=== PATIENT | female | born 2000 | race Hispanic/Latino ===

== ENCOUNTER 2020-06-06 10:51 | Outpatient (CLI) | payer OTHER ==
[~2020-06-06] VITALS: Ht 154.9 cm; Wt 66.2 kg
[2020-06-06 11:10] VITALS: BP 112/69
[2020-06-06] MEDS ORDERED: PRENTAB9 PO (11:23)
[2020-06-06] MEDS ORDERED: VITA250T4 PO (11:23)
[2020-06-06] MEDS ORDERED: IRON325T2 PO (11:23)
--- NOTE | 2020-06-06 13:37 | IPNPDOC ---
Obstetrical Progress Note Date of Service Jun 06, 2020 Subjective 19 yo g1 @ 38+0 by 17wk us who presents to triage after being seen in clinic for NST and noted to be having regular contractions and not feeling any of them. she was checked at that time and was found to be 5CM Dilated. she was send up her to R/o labor. she denies feeling any contractions. when she initially presented to triage her contractions wereq2-3 min but after she voided and was hydrated they spaced out to q7-8min. she denies feeling any pain. she reports regular getal movements and denies any vaginal bleeding. she has no concerns at this time. FHT 135, Mod lucia,+Accels, -Decels---Cat I tracing TOCO: q7-8min noted, not painful SVE: 5/50/-3, Unchanged after 2 and half hours of observation BP: Normal vitals in triage A/P 19 yo g1 @ 38+0 by 17wk us who presents to triage after being seen in clinic for NST and noted to be having regular contractions and not feeling any of them. Patient has known polyhdramnios. her cervical exam remains unchanged after 2hrs and patient would like to go home and gather her things before she can come back for augmentation and she wants to go natural. she is G1 and is not feeling her contractions, it is resonable to let her go home ( walking ) for a few hours then return around 7 pm. patient is given strict return precautions. Objective Vital Signs Date Time Temp Pulse Resp B/P (MAP) Pulse Ox O2 Delivery O2 Flow Rate FiO2 06/06/20 11:10 97.5 90 18 112/69 (83) GIOVANY CURRAN MD Jun 06, 2020 13:37
[2020-06-09] MEDS ORDERED: DIBU10OI TOP (07:16)
== END 2020-06-06 13:15 | disposition home or self-care (01) ==
LOC: M LDO 10:51
PROVIDERS: ATTEND Obstetrics & Gynecology
DX: O47.1 False labor at or after 37 completed weeks of gestation (principal); Z3A.38 38 weeks gestation of pregnancy; O40.9XX0 Polyhydramnios, unspecified trimester, not applicable or unspecified; Z88.2 Allergy status to sulfonamides
CPT/HCPCS: 59025; G0378; G0463

== ENCOUNTER 2020-06-06 19:39 | Inpatient (IN) | payer OTHER ==
[2020-06-06] VITALS (7 sets, daily range): BP systolic 99–120; BP diastolic 54–76
[~2020-06-06] VITALS: Ht 154.9 cm; Wt 66.3 kg
[~2020-06-06 19:39] MED LIST: IRON325T2 PO; PRENTAB9 PO; VITA250T4 PO
[2020-06-06] MEDS ORDERED: METHYLERGONOVINE MALEATE 0.2 MG/ML VIAL (J2210) ONE (20:00)
[2020-06-06 20:42] LABS: HEMATOCRIT 33.9 % (36.0-47.0); HEMOGLOBIN 11.4 g/dl (12.0-15.5); MEAN CORPUSCULAR HEMOGLOBIN 31.3 pg (27.0-33.0); MEAN CORPUSCULAR HGB CONC 33.6 g/dl (32.0-36.5); MEAN CORPUSCULAR VOLUME 93.1 fl (80.0-96.0); PLATELET COUNT, AUTOMATED 262 10^3/uL (150-450); RED BLOOD COUNT 3.64 10^6/uL (4.00-5.40)
[2020-06-06] MEDS ORDERED: LIDOCAINE 1% MDV 20ML VIAL INFIL PRN (20:50)
[2020-06-06] MEDS ORDERED: OXYTOCIN DRIP 30 UNITS in IV 1 EA IV PRN (20:50)
[2020-06-06] MEDS ORDERED: OXYTOCIN DRIP 30 UNITS in IV 1 EA IV SCH (21:10)
--- NOTE | 2020-06-06 21:20 | HPEPDOC ---
Obstetrical History & Physical General Date of Admission Jun 06, 2020 at 19:39 History of Present Illness Ms. Stephen is a 19yo at 38+0 presenting for labor. She presented earlier today and was 5cm she is now 6cm. She notably has polyhydraminos. She denied VB, LOF, decreased FM. She reports her contractions are more painful than earlier today. She denied n/v/d, cp, sob, franco, visual changes, f/c, urinary sx. 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: History of STD (chlamydia 2018) Past Medical History Medical History hyperlipidemia, polyhydraminos, anemia of , varicella non-immune Surgical History: Hernia repair (inguinal unsure side 2008) Family History Significant Family History: No pertinent family hx Social History Marital Status: Family situation: Spouse/partner home Psychosocial History: No pertinent psych hx * Smoker: non-smoker Alcohol: Denies Drugs: denies Imunizations Tdap status: current Influenza Status: needs Allergies Coded Allergies: Sulfa (Sulfonamide Antibiotics) (Verified Allergy, Unknown, 06/06/20) Medications Scheduled Ascorbic Acid (Vitamin C) 250 Mg Tablet, 1 TAB PO DAILY Ferrous Sulfate (Iron) 325 Mg Tablet, 1 TAB PO DAILY No.137/Iron/Folic Acd ( Vitamin Tablet) 1 Each Tablet, 1 TAB PO DAILY Physical Examination Physical Examination GENERAL: Alert and oriented times three. BREAST: . ABDOMEN: Gravid and non-tender to touch. FETUS: Is vertex (VTX) by sterile vaginal examination (SVE), fetus is vertex (VTX) by US OP HEART RATE: Regular rate and rhythm. LUNGS: Clear to auscultation (CTA). EXTREMITIES: No edema. No clonus. Vital Signs/I&O Vital Signs Date Time Temp Pulse Resp B/P (MAP) Pulse Ox O2 Delivery O2 Flow Rate FiO2 06/06/20 19:58 99.0 115 16 107/70 (82) Laboratory Data 24H LABS Laboratory Tests 2 06/06/20 19:54: Serology Scanned Report Hepatitis B Testing 06/06/20 20:25: Nucleated Red Blood Cells % (auto) 0.0 CBC/BMP Laboratory Tests 06/06/20 20:25 Urine Culture: No Growth Pertinent Laboratoy Data Blood Type: O+ RBC Antibody Screen: Negative HIV: Negative Hepatitis B: Negative Rapid Plasma Reagin: Nonreactive Rubella: Immune Varicella: Nonreactive Chlamydia/Gonorrhea: Negative Group B Streptococcus: Negative Quad Screen Test: Declined Cystic Fibrosis: Declined Glucose Tolerance Test: 95 Anatomy Ultrasound Placenta Location: Anterior Normal Anatomy: Yes (but incomplete imaging) Estimated Weight (grams): 3200 Vaginal Examination Dilation: 6 cm Effacement: 90% Station: -2 Cervical Consistency: Soft Cervical Position: Posterior Presentation: Cephalic presentation (by US and exam) Assessment Heart Rate (FHR): 130 Variability: Moderate Accelerations: Positive Decelerations: None Heart Patterns: Tachycardia Tocometer Contractions: Yes Frequency: irregular Multi-drug resistant Organism: No history of MDRO Assessment/Plan Assessment Ms. Stephen is a 19yo at 38+0 presenting for labor. She presented earlier today and was 5cm she is now 6cm. She notably has polyhydraminos. VS normal. CAT I tracing, reactive. APC 1. polyhydraminos 2. anemia of on Fe/Vit C 3. will be due for pap PP 4. varicella non-immune Rh pos, GBS neg, ceph by US, EFW 3200g, placenta anterior Admit and orient. Will plan to start pitocin and when the baby's head is well applied will AROM Nps and consent. Diet: clears Group B Streptococcus (GBS) [negative]. Labs and intravenous (IV) per unit protocol. Counseled on Pitocin and induction of labor (IOL). Lactated Ringers (LR): PRN Anticipate [normal spontaneous delivery ()]. C-S as appropriate. Labor and Delivery Counseling The patient was counseled on the routine risks of labor and delivery to include; risks of vaginal delivery, , operative delivery, blood transfusion, shoulder dystocia, hemorrhage management. She was also specifically counseled on her increased risk of cord prolapse given polyhydraminos which increases her risk of and need for general anesthesia. VIPUL CRENSHAW DO Jun 06, 2020 21:19
[2020-06-06] MEDS: LR 1,000 ML IV SCH (23:19)
--- NOTE | 2020-06-06 23:37 | IPNPDOC ---
Obstetrical Progress Note Date of Service Jun 06, 2020 Subjective To room for routine assessment, patient reports more pressure and regular contractions. Objective Vital Signs Date Time Temp Pulse Resp B/P (MAP) Pulse Ox O2 Delivery O2 Flow Rate FiO2 06/06/20 21:46 110 109/74 (86) 06/06/20 19:58 99.0 16 Assessment Heart Rate (FHR): 150 Variability: Moderate Accelerations: Positive Decelerations: None Heart Rate Tracing: Category I Tocometer Contractions: Yes Frequency: regular Sterile Vaginal Examination Dilation: 6 cm Effacement (%): 90% Station: -2 Cervical Consistency: Soft Cervical Position: Middle Postion/Presentation: Cephalic presentation (by exam) Assessment and Plan Status: Reassuring Anticipate: Vaginal Delivery Additional Comments To room for 2h assessment. SVE is unchanged, head is more engaged, AROM performed, clear. CAT I tracing, reactive. Contractions now more regular. IUPC placed due to unchanged in active labor on 2h reassessment. FSE placed to aid in monitoring. Will recheck in 2h or sooner if clinically indicated. VIPUL CRENSHAW DO Jun 06, 2020 23:37
[2020-06-07] VITALS (8 sets, daily range): BP systolic 96–126; BP diastolic 52–76
[2020-06-07] MEDS ORDERED: FENTANYL 2MCG/ML ROPIVACAINE 0.2% IN 0.9% NACL 100ML IVBAG As Ordered ONE (01:08)
[2020-06-07] MEDS ORDERED: ceFAZolin 2 GM/D5W 50 ML IV BAG (J0690 PER 500MG) As Ordered ONE (01:37)
[2020-06-07 01:39] LABS: CORD GAS ABE A -3.5; CORD GAS ABE V -2.5; CORD GAS HCO3 A 22.5 MEQ/L; CORD GAS O2 SAT A 70.8 %; CORD GAS O2 SAT V 72.1 %; CORD GAS PCO2 A 44.1 mmHg; CORD GAS PCO2 V 42.4 mmHg; CORD GAS PH A 7.325 UNITS; CORD GAS PH V 7.352 UNITS; CORD GAS PO2 A 28.9 mmHg; CORD GAS PO2 V 28.3 mmHg; CORD GAS SBC V 21.8 MEQ/L; CORD GAS TCO2 A 23.8 MEQ/L; CORD GAS TCO2 V 24.3 MEQ/L
[2020-06-07] MEDS ORDERED: DOCUSATE SODIUM 100MG CAPSULE PO PRN (02:20)
[2020-06-07] MEDS ORDERED: ACETAMINOPHEN TAB 650MG DOSE (2X325MG) PO PRN (02:20)
[2020-06-07] MEDS ORDERED: IBUPROFEN 600MG TAB PO PRN (02:20)
[2020-06-07] MEDS ORDERED: OXYTOCIN DRIP 30 UNITS in IV 1 EA IV SCH (02:20)
[2020-06-07] MEDS ORDERED: IBUPROFEN 800 MG TAB PO PRN (02:20)
[2020-06-07] MEDS ORDERED: METHYLERGONOVINE MALEATE 0.2 MG TAB PO PRN (02:20)
[2020-06-07] MEDS ORDERED: DIBUCAINE 1% OINTMENT 30GM TOP PRN (02:20)
--- NOTE | 2020-06-07 02:28 | DNPDOC ---
[facility] Delivery Note Delivery Note DATE OF DELIVERY: 06/07/20 PREDELIVERY DIAGNOSIS: 38+1/7 weeks' gestation and labor. Polyhydraminos. Anemia of . 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 Josse Crenshaw DO ANESTHESIA: lodicaine 1% local ESTIMATED BLOOD LOSS: 300 mL. FINDINGS: 3140, Score 9/9, nuchal cord times 0. DELIVERY SUMMARY: Ms. Stephen is a 19yo who presented in active labor, she notably had a complicated by polyhydraminos. With the aid of pitocin augmentation she progressed to C/C/+3 and with good maternal effort delivered the head in the [place] position followed by the corpus without difficulty. Cord clamping was delayed 60s and then was cut by the father of the baby. Cord blood and gasses were obtained. Significant bleeding was noted while delivering the placenta and it appeared to be coming from inside of the membranes, this was approx 200cc. When the placenta delivered a portion appeared disassembled and a uterine sweep was performed. 2g of ancef IV were administered prophylactically. There was uterine atony noted that was not resolved with standard pitocin bolus so methergine and cytotec were administered. A second degree perineal laceration was noted and was repaired with 2-0 vicryl in the usual fashion. The surgical site was hemostatic and the uterus remained firm. There were no complications. Note: the needle count was not correct, one needle was not accounted for. It was witnessed being placed on the operative field by the patient, RN, and provider and is suspected to be in the trash. The patient was offered a pelvic x-ray and she declined it. JOSSE CRENSHAW DO Jun 07, 2020 02:28
[2020-06-07] MEDS: ACETAMINOPHEN 500 MG TAB PO PRN ×2 (03:27→19:36)
[2020-06-07] MEDS: LR 1,000 ML IV SCH (05:10)
[2020-06-07] MEDS: PRENATAL VITAMINS CHEWABLE TABLET PO SCH (08:26)
[2020-06-08 06:00] VITALS: BP 131/61
--- NOTE | 2020-06-08 07:47 | IPNPDOC ---
Progress Note Date of Service: Jun 08, 2020 Progress Note Ms. 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 No acute events over last 24 hours. Carolynn reports feeling well this AM. She is ambulating, voiding on her own, tolerating a regular diet, and has minimal lochia. Pain is controlled with PO pain medications. Vitals - VSS, afebrile, normotensive, non tachycardic General - AAOX3, sitting up in bed, pleasant and conversant Abdomen - Fundus firm at U-2. No tenderness Extremities - No edema Ms. Stephen is doing well and is making an appropriate recovery. Plan for discharge home tomorrow if she continues to meet all criteria. All questions answered. 20 minutes Myles Thomas DO VS, I&O, 24H, Fishbone Vital Signs/I&O Vital Signs Date Time Temp Pulse Resp B/P (MAP) Pulse Ox O2 Delivery O2 Flow Rate FiO2 06/08/20 06:00 97.9 79 18 131/61 (84) 99 Room Air MYLES THOMAS DO Jun 08, 2020 07:47
[2020-06-08] MEDS: PRENATAL VITAMINS CHEWABLE TABLET PO SCH (08:21)
[2020-06-08 18:00] VITALS: BP 138/74
[2020-06-09 06:00] VITALS: BP 111/62
[2020-06-09] MEDS ORDERED: ACET-683 PO (07:16)
[2020-06-09] MEDS ORDERED: DIBU28OI2 TOP (07:16)
[2020-06-09] MEDS ORDERED: IBUP80TA PO (07:16)
--- NOTE | 2020-06-09 07:19 | DS.PDOC ---
Discharge Summary General Date of Admission Jun 06, 2020 at 19:39 Date of Discharge Jun 09, 2020 Discharge Summary HOSPITAL COURSE: Ms. Stephen is a 19 yo G1 now P1 who underwent an uncomplicated on 07Jun2020 after being admitted for active labor. Her course was unremarkable. On her day of discharge she met all appropriate discharge criteria. She was ambulating, voiding, tolerating a regular diet, and had minimal lochia. DISCHARGE MEDICATIONS: Please see below. ALLERGIES: Please see below. PHYSICAL EXAMINATION ON DISCHARGE: VITAL SIGNS: Please see below. GENERAL: AAOX3, NAD ABDOMINAL EXAMINATION: Fundus firm at U-2. No fundal tenderness EXTREMITIES: No edema PSYCHIATRIC EXAMINATION: Affect appropriate LABORATORY DATA: Please see below. ACTIVITY: Pelvic rest for 6 weeks DIET: Regular DISCHARGE PLAN: Discharge home [facility] DISCHARGE INSTRUCTIONS: 1. Nothing in the vagina for 6 weeks ITEMS TO FOLLOWUP ON ON OUTPATIENT: 1. 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 TIME SPENT ON DISCHARGE: Greater than 20 minutes. Myles Thomas DO Vital Signs/I&Os Vital Signs Date Time Temp Pulse Resp B/P (MAP) Pulse Ox O2 Delivery O2 Flow Rate FiO2 06/09/20 06:00 97.7 84 17 111/62 (78) 98 Room Air Discharge Medications Scheduled No.137/Iron/Folic Acd ( Vitamin Tablet) 1 Each Tablet, 1 TAB PO DAILY, (Reported) Scheduled PRN Acetaminophen (Acetaminophen) 500 Mg Tablet, 1,000 MG PO Q6HP PRN for PAIN LEVEL 6-10 Dibucaine (Dibucaine) 28 Gm Oint...g., 0 DOSE TOP Q4H PRN for PAIN Ibuprofen (Ibuprofen) 800 Mg Tablet, 800 MG PO Q8HP PRN for PAIN LEVEL 6-10 Allergies Coded Allergies: Sulfa (Sulfonamide Antibiotics) (Verified Allergy, Unknown, 06/06/20) MYLES THOMAS DO Jun 09, 2020 07:19
[2020-06-09] MEDS ORDERED: MEASLES,MUMPS,RUBELLA VACCINE INJ (MMR-II) (90707) SQ ONE (07:20)
[2020-06-09] MEDS: PRENATAL VITAMINS CHEWABLE TABLET PO SCH (09:54)
--- NOTE | 2020-06-09 13:09 | REP ---
INDICATION: incorrect count after procedure, please include vaginal area. COMPARISON: None. FINDINGS: KUB shows the intestinal gas pattern to be nonspecific. There is a moderate amount of colonic content. The organ silhouettes insofar as delineated are unremarkable. There is no evidence of free intraperitoneal air. There is no evidence of a foreign body. IMPRESSION: Nonspecific. No evidence of a foreign body. <Electronically signed by Braden Hart > 06/09/20 2921
== END 2020-06-09 16:30 | disposition home or self-care (01) | DRG 807 ==
LOC: M LDI 19:39 → M OBS 06-07 03:40
PROVIDERS: ADMIT Obstetrics & Gynecology; ATTEND Obstetrics & Gynecology
PROC: 10E0XZZ Delivery of Products of Conception, External Approach (ICD-10-PCS; principal; 2020-06-07)
PROC: 0KQM0ZZ Repair Perineum Muscle, Open Approach (ICD-10-PCS; 2020-06-07)
DX: O40.3XX0 Polyhydramnios, third trimester, not applicable or unspecified (principal); Z37.0 Single live birth; Z3A.38 38 weeks gestation of pregnancy; D64.9 Anemia, unspecified; O99.02 Anemia complicating childbirth; O70.1 Second degree perineal laceration during delivery